=== PATIENT | male | born 1975 | race Hispanic/Latino ===

== ENCOUNTER → 2022-03-09 | Outpatient (CLI) | payer OTHER | LOC: CT 11:05 | PROVIDERS: ATTEND Family Medicine | DX: R07.81 Pleurodynia (principal); R10.12 Left upper quadrant pain | CPT/HCPCS: 74176 ==

== ENCOUNTER → 2022-04-11 | Outpatient (CLI) | payer OTHER ==
[~2022-04-11] MED LIST: IOPAMIDOL 370 MG/ML 100 ML INFUS..BTL INJ ONE
== END ==
LOC: CT 07:35
PROVIDERS: ATTEND Family Medicine
DX: S01.81XD Laceration without foreign body of other part of head, subsequent encounter (principal); S02.2XXD Fracture of nasal bones, subsequent encounter for fracture with routine healing; S50.12XD Contusion of left forearm, subsequent encounter; R07.81 Pleurodynia; S22.32XD Fracture of one rib, left side, subsequent encounter for fracture with routine healing; R22.2 Localized swelling, mass and lump, trunk
CPT/HCPCS: 74177; Q9967